=== PATIENT | female | born 1980 | race Hispanic/Latino ===

== ENCOUNTER 2024-01-01 16:16 | Emergency (ER) | payer OTHER, BC ==
[~2024-01-01] VITALS: Ht 160 cm; Wt 90.7 kg
[~2024-01-01 16:16] MED LIST: ACET1TAB12 PO; PREN-114 PO; TYL3LL GT; [UNRECOGNIZED DRUG - CODE] GT
[2024-01-01] MEDS: IBUPROFEN 800 MG TAB PO ONE (16:49)
[2024-01-01] MEDS: CYCLOBENZAPRINE HCL 10 MG TABLET PO ONE (16:49)
[2024-01-01] MEDS ORDERED: CYCL10TA16 PO (17:48)
[2024-01-01] MEDS ORDERED: IBUP-2077 PO (17:48)
[2024-01-01 18:07] VITALS: BP 141/66; PULSE 79; RESP 17; O2SAT 99
== END 2024-01-01 18:08 | disposition home or self-care (01) ==
LOC: EDH 16:16
DX: S16.1XXA Strain of muscle, fascia and tendon at neck level, initial encounter (principal); S29.012A Strain of muscle and tendon of back wall of thorax, initial encounter; Z79.899 Other long term (current) drug therapy; Z98.890 Other specified postprocedural states; V89.2XXA Person injured in unspecified motor-vehicle accident, traffic, initial encounter; Y93.89 Activity, other specified; Y92.488 Other paved roadways as the place of occurrence of the external cause; Y99.8 Other external cause status
CPT/HCPCS: 72040